=== PATIENT | male | born 1990 | race African-American/Black ===

== ENCOUNTER 2021-04-14 12:35 | Emergency (ER) | payer SELFPAY ==
[~2021-04-14] VITALS: Ht 182.9 cm; Wt 65.0 kg
[2021-04-14 12:39] VITALS: BP 123/80
== END 2021-04-14 16:32 | disposition left against medical advice (07) ==
LOC: ER 13:46
DX: R21 Rash and other nonspecific skin eruption (principal); Z53.21 Procedure and treatment not carried out due to patient leaving prior to being seen by health care provider